=== PATIENT | female | born 1970 | race Two or more races ===

== ENCOUNTER 2024-08-25 12:12 | Emergency (ER) | payer MEDICAID, SELFPAY ==
[2024-08-25 12:57] VITALS: BP 104/72; PULSE 86; RESP 16; TEMP 37.1; O2SAT 96; BMI 27.0
--- NOTE | 2024-08-25 13:16 | EDNOTE_ITS ---
<Statement entered by Isabel Lawson MD - 08/25/24 17:06> As co-signing physician, I was present and available for consult prn. I concur with the plan and care as documented by the midlevel provider. ED Wound/Laceration-RME/HPI General Chief Complaint: Wound/Laceration Stated Complaint: Breast incision drainage Time Seen by Provider: 08/25/24 12:32 Arrival date/time: 08/25/24 12:12 RME / HPI RME / HPI narrative: 53-year-old female patient came in for evaluation regarding wound dehiscence. Patient had breast reconstruction done in [place], more than a month ago, patient noticed wound dehiscence on the left breast, severity mild. Patient denies any fever denies any vomiting denies any other complaints. No medications taken prior to arrival. Related Data Previous Rx's ?Medication ?Instructions ?Recorded hydrocodone 5 mg-acetaminophen 325 1 tab PO BID PRN pain #10 tabs 05/21/22 mg tablet ibuprofen 600 mg tablet 600 mg PO Q8H PRN pain #20 tabs 05/21/22 methocarbamol 750 mg tablet 750 mg PO TID #30 tabs 02/20/23 naproxen 500 mg tablet (Naprosyn) 500 mg PO BID #10 tabs 02/20/23 sulfamethoxazole 800 1 tab PO BID 10 days #20 tabs 08/25/24 mg-trimethoprim 160 mg tablet (Bactrim DS) Allergies Allergy/AdvReac Type Severity Reaction Status Date / Time No Known Allergies Allergy Verified 05/21/22 16:51 Review of Systems Review of Systems Narrative Review of Systems: Review of system reviewed and within normal limits except mentioned in HPI ED Exam Narrative Physical exam: VITAL SIGNS: Reviewed. GENERAL APPEARANCE: Alert and interactive, follows commands, no acute distress, HEAD AND FACE: Non-traumatic. ENT: PERRL, pink conjunctivitis, eyelid no trauma, Mucous membrane moist. NECK: Supple, nontender, no nuchal rigidity. CHEST: No tenderness, no crepitus, no paradoxical movement, no retractions. LUNGS: Clear, well ventilated, symmetric, no rales, no wheezing, no ronchi, no stridor, good breath sounds bilaterally. Breast : 2 cm wound dehiscence noted on the left breast inferior incision no drainage noted no redness noted HEART: Regular rate, regular rhythm, no murmur, no gallops. ABDOMEN: Soft, positive bowel sounds, nondistended, no guarding, nontender, no rebound, no masses, RECTAL: Deferred. GENITAL: Deferred. NEUROLOGICAL: Gross motor function intact sensory function intact, Appropriate for age. MUSCULOSKELETAL: low back nontender, full range of motion. EXTREMITIES: Nontender, full range of motion. SKIN: Color pink, dry, no rash, no lacerations, no abrasions, no contusions. LYMPHATICS: Deferred. Course Quality Measures none Orders Category Date Time Status Trimethoprim/Sulfa 160/800 Ds [Bactrim Ds] Med 08/25/24 13:20 Discontinued 1 tab PO X1 ONE Vital Signs Vital signs: Vital Signs Temperature 98.7 F 08/25/24 12:57 Pulse Rate 86 08/25/24 12:57 Respiratory Rate 16 08/25/24 12:57 Blood Pressure 104/72 08/25/24 12:57 Pulse Oximetry (%) 96 08/25/24 12:57 Oxygen Delivery Method Room Air 08/25/24 12:57 Wound / Laceration MDM Narrative MDM Narrative:: Imaging or workup is done at this time. Patient is not having any fever. There is wound dehiscence however there is no cyanosis or gangrene noted. I did not notice any drainage. Patient was advised to see her breast surgeon, in 1 to 2 days. Patient told me that she will call the surgeon today. Patient was given Bactrim in the ED. Patient data External records reviewed:: None Clinical information provided by:: patient Social determinants that could affect healthcare access:: none Patient has the following chronic illnesses:: None How is presenting disease/condition affected by chronic disease/condition?: no chronic disease Evaluation data The following diagnostics were reviewed and interpreted by me:: other (specify) (None) Lab and/or radiology exams considered but not ordered:: None Interpretation Summary: None Medications / Prescriptions Medications or Prescriptions considered but not ordered:: None Medication administrations:: Medication Administration History Discontinued Medications Trimethoprim/Sulfamethoxazole (Trimethoprim/Sulfa 160/800 Ds Tablet) 1 tab PO X1 ONE Stop: 08/25/24 13:21 Last Admin: 08/25/24 14:03 Dose: 1 tab Documented By: Bactrim Consultations Consultation(s) initiated? (list below): No Diagnosis Wound Differential Diagnosis: abscess and other (Wound infection, wound dehiscence) Most likely diagnosis given after review of the tests above:: Wound dehiscence, status post breast reduction surgery a month ago Admission Indicated Admission indicated?: not indicated Explain why admission is indicated or not indicated:: Stable Admission Request Was there a request for admission?: No Disposition Plan Disposition Plan: Discharge Discharge Attestation Discharge Attestation: The patient was given an opportunity to ask questions and understood the discharge instructions. Discharge instructions specifically effects, indications for sooner follow up or return to the emergency department, and the expected course of current diagnosis. Patient condition: Stable Discharge Plan Plan Patient Disposition: HOME (Self Care) Disposition Comment: Stable Prescriptions/Referrals Prescriptions/Med Rec: New sulfamethoxazole-trimethoprim [Bactrim DS] 800-160 mg tablet 1 tab PO BID 10 Days Qty: 20 0RF No Action hydrocodone-acetaminophen 5-325 mg tablet 1 tab PO BID MDD 10 PRN (Reason: pain) Qty: 10 0RF ibuprofen 600 mg tablet 600 mg PO Q8H PRN (Reason: pain) Qty: 20 0RF naproxen [Naprosyn] 500 mg tablet 500 mg PO BID Qty: 10 0RF methocarbamol 750 mg tablet 750 mg PO TID Qty: 30 0RF Problem List Clinical Impression: Postoperative wound dehiscence, History of breast augmentation Patient/Caregiver Discharge Instructions Discharge Activity: activity as tolerated Education Materials: ED Post Op Wound Check, Infection Additional Instructions: Thank you for the opportunity for serving you today. You are stable for discharged . You are advised to: Follow-up with your breast surgeon in 1 to 2 days Return to ED for worsening of symptoms, fever Increase oral fluids Take medication as prescribe Daily dressing Neosporin as needed Print Language: Tristanian Stand Alone Forms: [facility] Award Info., Patient Portal Info Letter PA/TEQUILA Supervising Physician LES/TEQUILA Supervising Physician: MD Lonnie
[2024-08-25] MEDS: TRIMETHOPRIM/SULFA 160/800 DS TABLET 1 TAB PO (14:03)
== END 2024-08-25 15:18 | disposition home or self-care (01) ==
LOC: SERX 14:31
PROVIDERS: Emergency Provider Emergency Medicine; PCP Family Medicine
DX: T81.31XA Disruption of external operation (surgical) wound, not elsewhere classified, initial encounter (principal); Y84.8 Other medical procedures as the cause of abnormal reaction of the patient, or of later complication, without mention of misadventure at the time of the procedure
CPT/HCPCS: 99282; A9270